=== PATIENT | female | born 1930 | race American Indian/Alaskan Native ===

== ENCOUNTER 2017-01-01 11:56 | Day surgery (SDC) | payer MEDICARE, MEDICAID ==
[2016-12-27 12:16] LABS: Hematocrit 28.4 % (30.3-42.9); Hemoglobin 8.9 gm/dl (10.1-14.3)
[2017-01-01 12:19] LABS: Hemoglobin 8.6 gm/dl (10.1-14.3)
[2017-01-01] MEDS ORDERED: NACL 0.9% 250ML 250 ML IV ONE (12:45)
[2017-01-01] MEDS ORDERED: APRESOLINE ONE (14:30)
[2017-01-01 14:47] VITALS: BP 202/121
[2017-01-01] MEDS ORDERED: APRESOLINE IV ONE (15:00)
== END 2017-01-01 14:45 ==
LOC: OPU 11:56
PROVIDERS: ATTEND Internal Medicine
DX: R79.0 Abnormal level of blood mineral (principal)
CPT/HCPCS: 36415; 36430; 85014; 85018; 86850; 86900; 86901; 86920; J0360; J7050; P9016

== ENCOUNTER 2017-01-05 18:25 | Inpatient (IN) | payer MEDICARE ==
[2017-01-05] MEDS ORDERED: NACL 0.9% 1000 ML 1,000 ML IV ONE (18:47)
--- NOTE | 2017-01-05 19:14 | Emergency Department Report ---
ED GI Bleed HPI - General Chief complaint: GI Bleed Stated complaint: GI BLEED Time Seen by Provider: 01/05/17 19:05 Source: EMS, RN notes reviewed, old records reviewed Mode of arrival: Stretcher Limitations: Other (patient demented, poor historian) - History of Present Illness Initial comments: This is an 86-year-old female. She is previously unknown to me. Primary care Dr.: Dr. Goyo Hayden, Dr. Arden Valdez. Past medical history includes hypertension, dementia, debility, constipation, diabetes. Patient is sent to the ER by her [facility] for evaluation of anemia and probable GI bleed. As per family and corroborating medical records, on 12/25/2016, patient had outpatient blood work which demonstrated a hemoglobin and hematocrit of 7/21 respectively. On 01/04/2017, recent head fecal occult blood testing, which was noted to be positive. As per verbal report from family, patient has had multiple hospital visits for blood transfusions. As per documentation of EMS, "GI bleed, estimated 30-40 mL of blood passed." There is no documentation of recent gastrointestinal evaluation. Patient is demented, and does not offer any specific complaints. In the emergency room, her physical examination is unremarkable, she had brown stool that was strongly guaiac positive. She is found to be hypokalemic with a probable urinary tract infection. She is hemodynamically stable. Case is discussed with gastroenterology, Dr. Danielito Mesa, whose group will see the patient is a consult. Case is discussed with Hospital physician, , who accepts the patient to his service. Medical decision-m[age]-year-old female with guaiac positive stool requiring multiple episodes of packed red blood cell transfusion in the past, to be admitted for further evaluation and management. Given her advanced age, medical comorbidities, patient at high risk for clinical deterioration, it is therefore not suitable for outpatient evaluation and management. -: Gradual Quality: painless Consistency: intermittent Improves with: none Worsens with: none Associated Symptoms: denies other symptoms - Related Data Home Medications Medication Instructions Recorded Confirmed Last Taken Acetaminophen [Acetaminophen TAB] 650 mg PO Q4HR PRN 04/28/16 01/05/17 Unknown Ascorbic Acid [Vitamin C] 500 mg PO BID 04/28/16 01/05/17 10/23/16 500mg Calcium Carbonate/Vitamin D3 1 each PO BID 04/28/16 01/05/17 10/23/16 [Calcium 600-Vit D3 400 Caplet] 1 Magnesium Hydroxide [Milk of 400 mg PO Q4H PRN 04/28/16 01/05/17 Unknown Magnesia] Multivitamin with Minerals/Lut 1 each PO DAILY 04/28/16 01/05/17 10/23/16 [Pub Multivitamin 50 Plus Tab] 1 Sorbitol Solution [Sorbitol] 30 ml PO 2XW 04/28/16 01/05/17 10/20/16 30ml Tramadol HCl [traMADol] 100 mg PO Q12H 04/28/16 01/05/17 10/23/16 50mg Insulin Detemir [Levemir VIAL] 5 unit SQ QHS 01/05/17 01/05/17 Unknown cloNIDine-TTS PATCH [Catapres-Tts 1 patch TD Q7D 01/05/17 01/05/17 Unknown Patch] Previous Rx's Medication Instructions Recorded Last Taken Type Ferrous Sulfate [Ferrous Sulfate 12.5 mg PO BID #60 syringe 01/08/17 Unknown Rx Oral Liq 12.5 Mg/0.83 Ml] Allergies Allergy/AdvReac Type Severity Reaction Status Date / Time codeine AdvReac Unknown Verified 04/28/16 07:56 ED Review of Systems ROS: Stated complaint: GI BLEED Other details as noted in HPI Comment: Unobtainable due to pts medical conditions ED Past Medical Hx - Past Medical History Previous Medical History?: Yes Hx Hypertension: Yes Hx CVA: Yes Hx Diabetes: Yes (type 2) Hx Renal Disease: Yes (CKD, stage 2) Hx Arthritis: Yes Hx Dementia: Yes Hx HIV: No Additional medical history: GI bleed, dysphagia, anemia, osteoporosis - Social History Smoking Status: Unknown if ever smoked Substance Use Type: None - Medications Home Medications: Home Medications Medication Instructions Recorded Confirmed Last Taken Type Acetaminophen [Acetaminophen TAB] 650 mg PO Q4HR PRN 04/28/16 01/05/17 Unknown History Ascorbic Acid [Vitamin C] 500 mg PO BID 04/28/16 01/05/17 10/23/16 History 500mg Calcium Carbonate/Vitamin D3 1 each PO BID 04/28/16 01/05/17 10/23/16 History [Calcium 600-Vit D3 400 Caplet] 1 Magnesium Hydroxide [Milk of 400 mg PO Q4H PRN 04/28/16 01/05/17 Unknown History Magnesia] Multivitamin with Minerals/Lut 1 each PO DAILY 04/28/16 01/05/17 10/23/16 History [Pub Multivitamin 50 Plus Tab] 1 Sorbitol Solution [Sorbitol] 30 ml PO 2XW 04/28/16 01/05/17 10/20/16 History 30ml Tramadol HCl [traMADol] 100 mg PO Q12H 04/28/16 01/05/17 10/23/16 History 50mg Insulin Detemir [Levemir VIAL] 5 unit SQ QHS 01/05/17 01/05/17 Unknown History cloNIDine-TTS PATCH [Catapres-Tts 1 patch TD Q7D 01/05/17 01/05/17 Unknown History Patch] Ferrous Sulfate [Ferrous Sulfate 12.5 mg PO BID #60 syringe 01/08/17 Unknown Rx Oral Liq 12.5 Mg/0.83 Ml] ED Physical Exam - General Limitations: Other (patient is pleasantly demented.) General appearance: in no apparent distress - Head Head exam: Present: atraumatic, normocephalic - Eye Eye exam: Present: normal appearance. Absent: nystagmus - ENT ENT exam: Present: mucous membranes dry - Neck Neck exam: Present: normal inspection, full ROM. Absent: tenderness - Respiratory Respiratory exam: Present: normal lung sounds bilaterally. Absent: respiratory distress, wheezes, rales, rhonchi, stridor, decreased breath sounds - Cardiovascular Cardiovascular Exam: Present: regular rate, normal rhythm, normal heart sounds. Absent: bradycardia, tachycardia, irregular rhythm, systolic murmur, diastolic murmur, rubs, gallop - GI/Abdominal GI/Abdominal exam: Present: soft, normal bowel sounds. Absent: distended, tenderness, guarding, rebound, rigid, pulsatile mass - Rectal Rectal exam: Present: normal inspection, normal rectal tone, heme (+) stool - Extremities Exam Extremities exam: Present: normal inspection, full ROM, normal capillary refill. Absent: tenderness, pedal edema, joint swelling, calf tenderness - Back Exam Back exam: Present: normal inspection, full ROM. Absent: tenderness, CVA tenderness (R), CVA tenderness (L), muscle spasm, paraspinal tenderness, vertebral tenderness - Neurological Exam Neurological exam: Present: alert, other (is no facial droop. Moves 4 extremities spontaneously. Sensation intact to light touch in 4 extremities.) - Psychiatric Psychiatric exam: Present: flat affect - Skin Skin exam: Present: warm, dry, intact, normal color. Absent: rash ED Course Vital Signs 01/05/17 01/05/17 01/05/17 18:35 18:39 18:40 Temperature 97.6 F Pulse Rate 73 78 77 Respiratory 17 16 Rate Blood Pressure 177/104 177/104 O2 Sat by Pulse 99 98 98 Oximetry 01/05/17 01/05/17 01/05/17 18:42 18:44 18:46 Temperature Pulse Rate 73 77 72 Respiratory 16 19 16 Rate Blood Pressure 177/104 177/104 177/104 O2 Sat by Pulse 99 98 99 Oximetry 01/05/17 01/05/17 01/05/17 18:48 18:50 18:52 Temperature Pulse Rate 74 77 72 Respiratory 19 19 16 Rate Blood Pressure 177/104 177/104 177/104 O2 Sat by Pulse 98 98 97 Oximetry 01/05/17 01/05/17 01/05/17 18:54 18:56 18:58 Temperature Pulse Rate 72 79 72 Respiratory 19 18 17 Rate Blood Pressure 177/104 177/104 177/104 O2 Sat by Pulse 97 97 97 Oximetry 01/05/17 01/05/17 01/05/17 19:00 19:02 19:04 Temperature Pulse Rate 80 101 H 81 Respiratory 21 15 12 Rate Blood Pressure 186/115 186/115 186/115 O2 Sat by Pulse 98 97 98 Oximetry 01/05/17 01/05/17 01/05/17 19:06 19:08 19:10 Temperature Pulse Rate 74 75 72 Respiratory 21 18 16 Rate Blood Pressure 186/115 186/115 186/115 O2 Sat by Pulse 99 99 100 Oximetry 01/05/17 01/05/17 01/05/17 20:00 20:04 20:08 Temperature 98.4 F Pulse Rate 68 69 Respiratory 17 18 Rate Blood Pressure 191/82 191/82 O2 Sat by Pulse 97 97 Oximetry 01/05/17 01/05/17 01/05/17 21:00 22:00 22:44 Temperature Pulse Rate 71 72 Respiratory 17 11 L 16 Rate Blood Pressure 146/91 181/90 O2 Sat by Pulse 100 98 98 Oximetry 01/05/17 01/06/17 01/06/17 23:00 00:00 01:00 Temperature Pulse Rate 73 78 73 Respiratory 19 15 17 Rate Blood Pressure 180/107 187/100 204/107 O2 Sat by Pulse 100 97 98 Oximetry 01/06/17 01/06/17 01/06/17 02:00 03:00 03:21 Temperature Pulse Rate 77 74 70 Respiratory 18 21 Rate Blood Pressure 184/107 202/89 202/115 O2 Sat by Pulse 100 97 Oximetry - Reevaluation(s) Reevaluation #1: 01/05/17 21:40 elevated blood pressure is appreciated. However given active GI bleed, medical comorbidities, I don't find it prudent to initiate antihypertensive therapy at this time. ED Medical Decision Making - Lab Data Result diagrams: 01/07/17 05:04 01/07/17 05:04 Vital Signs 01/05/17 01/05/17 01/05/17 18:35 18:39 18:40 Temperature 97.6 F Pulse Rate 73 78 77 Respiratory 17 16 Rate Blood Pressure 177/104 177/104 O2 Sat by Pulse 99 98 98 Oximetry 01/05/17 01/05/17 01/05/17 18:42 18:44 18:46 Temperature Pulse Rate 73 77 72 Respiratory 16 19 16 Rate Blood Pressure 177/104 177/104 177/104 O2 Sat by Pulse 99 98 99 Oximetry 01/05/17 01/05/17 01/05/17 18:48 18:50 18:52 Temperature Pulse Rate 74 77 72 Respiratory 19 19 16 Rate Blood Pressure 177/104 177/104 177/104 O2 Sat by Pulse 98 98 97 Oximetry 01/05/17 01/05/17 01/05/17 18:54 18:56 18:58 Temperature Pulse Rate 72 79 72 Respiratory 19 18 17 Rate Blood Pressure 177/104 177/104 177/104 O2 Sat by Pulse 97 97 97 Oximetry 01/05/17 01/05/17 01/05/17 19:00 19:02 19:04 Temperature Pulse Rate 80 101 H 81 Respiratory 21 15 12 Rate Blood Pressure 186/115 186/115 186/115 O2 Sat by Pulse 98 97 98 Oximetry 01/05/17 01/05/17 01/05/17 19:06 19:08 19:10 Temperature Pulse Rate 74 75 72 Respiratory 21 18 16 Rate Blood Pressure 186/115 186/115 186/115 O2 Sat by Pulse 99 99 100 Oximetry 01/05/17 01/05/17 20:00 20:08 Temperature 98.4 F Pulse Rate 68 Respiratory 17 Rate Blood Pressure 191/82 O2 Sat by Pulse 97 Oximetry Lab Results 01/05/17 01/05/17 01/05/17 Range/Units 19:26 19:26 19:26 WBC 4.4 L (4.5-11.0) K/mm3 RBC 3.77 (3.65-5.03) M/mm3 Hgb 9.6 L (10.1-14.3) gm/dl Hct 30.0 L (30.3-42.9) % MCV 80 (79-97) fl MCH 26 L (28-32) pg MCHC 32 (30-34) % RDW 22.5 H (13.2-15.2) % Plt Count 179 (140-440) K/mm3 Lymph % (Auto) 25.8 (13.4-35.0) % Davie % (Auto) 7.3 (0.0-7.3) % Eos % (Auto) 2.0 (0.0-4.3) % Baso % (Auto) 0.5 (0.0-1.8) % Lymph # 1.1 L (1.2-5.4) K/mm3 Davie # 0.3 (0.0-0.8) K/mm3 Eos # 0.1 (0.0-0.4) K/mm3 Baso # 0.0 (0.0-0.1) K/mm3 Seg Neutrophils % 64.4 (40.0-70.0) % Seg Neutrophils # 2.9 (1.8-7.7) K/mm3 PT 14.5 (12.2-14.9) Sec. INR 1.14 H (0.87-1.13) APTT 25.3 (24.2-36.6) Sec. Sodium 144 (137-145) mmol/L Potassium 2.8 L* (3.6-5.0) mmol/L Chloride 103.9 (98-107) mmol/L Carbon Dioxide 27 (22-30) mmol/L Anion Gap 16 mmol/L BUN 17 (7-17) mg/dL Creatinine 0.5 L (0.7-1.2) mg/dL Estimated GFR > 60 ml/min BUN/Creatinine Ratio 34.00 % Glucose 203 H (65-100) mg/dL Calcium 9.3 (8.4-10.2) mg/dL Magnesium (1.7-2.3) mg/dL Total Bilirubin 0.2 (0.1-1.2) mg/dL AST 11 (5-40) units/L ALT 5 L (7-56) units/L Alkaline Phosphatase 70 (35-129) units/L Total Protein 6.5 (6.3-8.2) g/dL Albumin 3.3 L (3.9-5) g/dL Albumin/Globulin Ratio 1.0 % Lipase 13 (13-60) units/L Urine Color (Yellow) Urine Turbidity (Clear) Urine pH (5.0-7.0) Ur Specific [place] (1.003-1.030) Urine Protein (Negative) mg/dL Urine Glucose (UA) (Negative) mg/dL Urine Ketones (Negative) mg/dL Urine Blood (Negative) Urine Nitrite (Negative) Urine Bilirubin (Negative) Urine Urobilinogen (<2.0) mg/dL Ur Leukocyte Esterase (Negative) Urine WBC (Auto) (0.0-6.0) /HPF Urine RBC (Auto) (0.0-6.0) /HPF U Epithel Cells (Auto) (0-13.0) /HPF Urine Bacteria (Auto) (Negative) /HPF Urine Mucus /HPF Blood Type Antibody Screen 01/05/17 01/05/17 01/05/17 Range/Units 19:30 20:07 20:48 WBC (4.5-11.0) K/mm3 RBC (3.65-5.03) M/mm3 Hgb (10.1-14.3) gm/dl Hct (30.3-42.9) % MCV (79-97) fl MCH (28-32) pg MCHC (30-34) % RDW (13.2-15.2) % Plt Count (140-440) K/mm3 Lymph % (Auto) (13.4-35.0) % Davie % (Auto) (0.0-7.3) % Eos % (Auto) (0.0-4.3) % Baso % (Auto) (0.0-1.8) % Lymph # (1.2-5.4) K/mm3 Davie # (0.0-0.8) K/mm3 Eos # (0.0-0.4) K/mm3 Baso # (0.0-0.1) K/mm3 Seg Neutrophils % (40.0-70.0) % Seg Neutrophils # (1.8-7.7) K/mm3 PT (12.2-14.9) Sec. INR (0.87-1.13) APTT (24.2-36.6) Sec. Sodium (137-145) mmol/L Potassium (3.6-5.0) mmol/L Chloride (98-107) mmol/L Carbon Dioxide (22-30) mmol/L Anion Gap mmol/L BUN (7-17) mg/dL Creatinine (0.7-1.2) mg/dL Estimated GFR ml/min BUN/Creatinine Ratio % Glucose (65-100) mg/dL Calcium (8.4-10.2) mg/dL Magnesium 2.0 (1.7-2.3) mg/dL Total Bilirubin (0.1-1.2) mg/dL AST (5-40) units/L ALT (7-56) units/L Alkaline Phosphatase (35-129) units/L Total Protein (6.3-8.2) g/dL Albumin (3.9-5) g/dL Albumin/Globulin Ratio % Lipase (13-60) units/L Urine Color Camila (Yellow) Urine Turbidity Slightly-cloudy (Clear) Urine pH 5.0 (5.0-7.0) Ur Specific [place] 1.026 (1.003-1.030) Urine Protein 30 mg/dl (Negative) mg/dL Urine Glucose (UA) Neg (Negative) mg/dL Urine Ketones Tr (Negative) mg/dL Urine Blood Neg (Negative) Urine Nitrite Pos (Negative) Urine Bilirubin Neg (Negative) Urine Urobilinogen 2.0 (<2.0) mg/dL Ur Leukocyte Esterase Tr (Negative) Urine WBC (Auto) 1.0 (0.0-6.0) /HPF Urine RBC (Auto) 33.0 (0.0-6.0) /HPF U Epithel Cells (Auto) 2.0 (0-13.0) /HPF Urine Bacteria (Auto) 3+ (Negative) /HPF Urine Mucus 2+ /HPF Blood Type A POSITIVE Antibody Screen Negative - EKG Data When compared to previous EKG there are: previous EKG unavailable 01/05/17 21:41 Normal sinus, 74 bpm, motion artifact, nonspecific T-wave abnormality, not morphologically consistent with STEMI. Critical care attestation.: If time is entered above; I have spent that time in minutes in the direct care of this critically ill patient, excluding procedure time. ED Disposition Clinical Impression: GI bleed, UTI (urinary tract infection), Hypokalemia Disposition: OP ADMITTED IP TO THIS HOSP Is pt being admited?: Yes Condition: Stable
[2017-01-05 19:45] LABS: Basophils % (Auto) 0.5 % (0.0-1.8); Hemoglobin 9.6 gm/dl (10.1-14.3); Mean Corpuscular HGB Conc 32 % (30-34); Mean Corpuscular Volume 80 fl (79-97); Platelet Count 179 K/mm3 (140-440); Red Blood Count 3.77 M/mm3 (3.65-5.03); White Blood Count 4.4 K/mm3 (4.5-11.0)
[2017-01-05 19:46] LABS: Mean Corpuscular Hemoglobin 26 pg (28-32); Red Cell Distribution Width 22.5 % (13.2-15.2)
[2017-01-05 19:57] LABS: INR 1.14 (0.87-1.13)
[2017-01-05 19:58] LABS: Partial Thromboplastin Time 25.3 Sec. (24.2-36.6)
[2017-01-05 20:09] LABS: Albumin 3.3 g/dL (3.9-5); Alkaline Phosphatase 70 units/L (35-129); Anion Gap 16 mmol/L; Bilirubin,Total 0.2 mg/dL (0.1-1.2); Blood Urea Nitrogen 17 mg/dL (7-17); Calcium 9.3 mg/dL (8.4-10.2); Carbon Dioxide 27 mmol/L (22-30); Chloride 103.9 mmol/L (98-107); Glucose 203 mg/dL (65-100); Lipase 13 units/L (13-60); Sodium 144 mmol/L (137-145); Total Protein 6.5 g/dL (6.3-8.2)
[2017-01-05 20:20] LABS: Alanine Aminotransferase 5 units/L (7-56); Potassium 2.8 mmol/L (3.6-5.0)
[2017-01-05 20:47] LABS: Bacteria,Urine 3+ /HPF (Negative); Bilirubin,Urine NEG (Negative); Blood,Urine NEG (Negative); Ketones,Urine TR mg/dL (Negative); Leukocyte Esterase,Urine TR (Negative); Mucus,Urine 2+ /HPF; Nitrite,Urine POS (Negative)
[2017-01-05] MEDS ORDERED: ROCEPHIN/NS 1 GM/50 ML 1 GM/50 ML BAG IV ONE (21:40)
[2017-01-05] MEDS: KCL 10MEQ/100ML 10 MEQ/100 ML BAG IV SCH (22:13)
[2017-01-06] MEDS: KCL 10MEQ/100ML 10 MEQ/100 ML BAG IV SCH ×3 (02:35→15:16)
[2017-01-06] MEDS ORDERED: APRESOLINE IV ONE (03:04)
[2017-01-06] MEDS ORDERED: APRESOLINE ONE (03:06)
--- NOTE | 2017-01-06 09:30 | Event Note ---
Date: 01/06/17 See H/p in reports GI hge HTN IDDM Dementia
[2017-01-06] MEDS ORDERED: CATAPRES-TTS PATCH TD SCH (10:00)
--- NOTE | 2017-01-06 11:59 | History and Physical Report ---
CHIEF COMPLAINT: Feeling weak. HISTORY OF PRESENT ILLNESS: An 86-year-old female brought in by family because of GI bleed about 30 to 40 mL of blood was noted. The patient has been having multiple blood transfusions because of the chronic GI bleed. No lightheadedness, no syncope. In the ER, the patient had a guaiac positive stool. PAST MEDICAL HISTORY: Significant for Insulin-dependent diabetes, hypertension, vitamin deficiency, chronic pain, dementia, cerebrovascular accident, and chronic kidney disease. CURRENT MEDICATIONS: On the chart. Off note is Levemir of 5 units at bedtime and clonidine-TTS patch. SOCIAL HISTORY: Does not smoke. No alcohol, no recreational drugs. FAMILY HISTORY: Significant for hypertension. REVIEW OF SYSTEMS: Significant for dementia and lower GI bleed and weakness. Otherwise, review of systems is essentially negative. PHYSICAL EXAMINATION: GENERAL: Elderly female, cooperative during examination. VITAL SIGNS: Blood pressure is 177/104, temperature is 97.6, O2 sats are 99%, and pulse is 73. HEENT: Unremarkable. Pale mucous membranes. NECK: Supple, no lymphadenopathy, no thyromegaly. LUNGS: Clear to auscultation and percussion. Good air entry. CARDIOVASCULAR: S1, S2 heard. No gallop, no murmur, no rub. Apical impulse in left fifth intercostal space and midclavicular line. ABDOMEN: Soft and benign. No hepatosplenomegaly. No guarding or rigidity. Hernial orifices are normal. EXTREMITIES: Good pedal pulses. No pedal edema. CENTRAL NERVOUS SYSTEM: Alert, but not oriented. LABORATORY DATA: Off-note note potassium is 2.8, H and H are 9.6 and 30.0. Glucose is 203. ASSESSMENT AND PLAN: 1. Gastrointestinal bleed. The patient is on IV Protonix. Gastroenterology consult requested. We will transfuse as necessary. Now presently H and H are 9.6 and 30.0, does not need transfusion. 2. Hypertension. Continue clonidine patch TTS. 3. Insulin-dependent diabetes. Continue insulin coverage. 4. Dementia, supportive care. The patient is not on Aricept. 5. Deep venous thrombosis prophylaxis, sequential compression devices. No Lovenox because of bleed. JOB# [id number] VSM/NTS
[2017-01-06] MEDS ORDERED: NACL 0.9% 250ML 250 ML IV ONE (14:05)
--- NOTE | 2017-01-06 16:17 | Gastroenterology Consultation ---
History of Present Illness - Reason for Consult Consult date: 01/06/17 anemia, occult GI bleeding Requesting physician: CONSTANCE CHARLES - History of Present Illness The patient is an 86-year-old and has been under the care of Dr. Goyo Hayden. She has apparently been detected to have anemia in the past and by history through the emergency room position may have passed a small amount of bright red blood per rectum recently. She had brown Hemoccult positive stools in the emergency department. The patient has advanced dementia and is unable to give any history. He lives in a [facility]. She currently denies any complaints. Past History Past Medical History: other (dementia with details of her past medical history are otherwise unknown.) Past Surgical History: Other (unknown) Social history: other (lives in a fci) Family history: other (unknown presently) Medications and Allergies Allergies Allergy/AdvReac Type Severity Reaction Status Date / Time codeine AdvReac Unknown Verified 04/28/16 07:56 Home Medications Medication Instructions Recorded Confirmed Last Taken Type Acetaminophen [Tylenol] 650 mg PO Q4HR PRN 04/28/16 01/05/17 Unknown History Ascorbic Acid [Vitamin C] 500 mg PO BID 04/28/16 01/05/17 10/23/16 History 500mg Calcium Carbonate/Vitamin D3 1 each PO BID 04/28/16 01/05/17 10/23/16 History [Calcium 600 + Vit D Caplet] 1 Magnesium Hydroxide [Milk of 400 mg PO Q4H PRN 04/28/16 01/05/17 Unknown History Magnesia] Multivitamin with Minerals/Lut 1 each PO DAILY 04/28/16 01/05/17 10/23/16 History [Pub Senior Vitamin Tablet] 1 Sorbitol Solution [Sorbitol] 30 ml PO 2XW 04/28/16 01/05/17 10/20/16 History 30ml Tramadol HCl [traMADol] 100 mg PO Q12H 04/28/16 01/05/17 10/23/16 History 50mg Insulin Detemir [Levemir VIAL] 5 unit SQ QHS 01/05/17 01/05/17 Unknown History cloNIDine-TTS PATCH [Catapres-Tts 1 patch TD Q7D 01/05/17 01/05/17 Unknown History Patch] Active Meds: Active Medications Clonidine HCl (Catapres-Tts Patch) 0.2 mg TD Sa ROBYN Last Admin: 01/06/17 13:46 Dose: 0.2 mg Insulin Aspart (Novolog) 0 units SUB-Q Q6HR ROBYN PRN Reason: Protocol Review of Systems - Review of Systems ROS unobtainable: due to mental status Exam - Constitutional Vital Signs: Temp Pulse Resp BP Pulse Ox 97.5 F L 84 16 180/72 98 01/06/17 08:00 01/06/17 08:00 01/06/17 08:00 01/06/17 13:46 01/06/17 08:00 General appearance: no acute distress, cachectic - EENT Eyes: PERRL ENT: hearing intact - Neck Neck: supple, normal ROM, no masses or JVD - Respiratory Respiratory effort: normal Respiratory: bilateral: CTA - Breasts Breasts: deferred - Cardiovascular Rhythm: regular Heart Sounds: Present: S1 & S2. Absent: gallop, rub - Gastrointestinal General gastrointestinal: Present: soft, non-tender, non-distended, normal bowel sounds. Absent: hepatomegaly, splenomegaly, mass Rectal Exam: deferred - Genitourinary Female Genitourinary: deferred - Integumentary Integumentary: Present: clear, warm, dry - Musculoskeletal Musculoskeletal: deferred - Neurologic Neurological: oriented to person, other (generalized confusion. Does not follow commands well.) - Labs CBC & Chem 7: 01/05/17 19:26 01/05/17 19:26 Lab Results: Laboratory Results - last 24 hr 01/06/17 11:24 POC Glucose 153 H Assessment and Plan - Patient Problems (1) Anemia Current Visit: Yes Status: Acute Qualifiers: Anemia type: A Iron deficiency anemia type: I Vitamin B12 deficiency anemia type: V Folate deficiency anemia type: F Bone marrow failure anemia type: B Hemolytic anemia type: H Other causes of anemia: O Plan to address problem: Anemia is chronic. The patient does not appear to have an active GI bleed. I' m not certain that she is suitable for any gastrointestinal workup because of her advanced dementia. Will discuss her care with the family. (2) Dementia Current Visit: Yes Status: Acute Qualifiers: Dementia type: D Alzheimer's disease onset: A Dementia behavioral disturbance: D Plan to address problem: Advanced dementia. (3) GI bleed Current Visit: Yes Status: Acute Qualifiers: GI bleed type/associated pathology: G Gastritis type: G Plan to address problem: No active bleeding is apparent. She had brown Hemoccult positive stools on ER presentation although there was a history of passing some bright red blood per rectum recently per the emergency room doctors records. Cross history from the family is pending. I doubt she would tolerate preparation for colonoscopy and would probably not be a candidate for surgery if a malignancy were present. (4) Hypokalemia Current Visit: Yes Status: Acute
--- NOTE | 2017-01-06 16:35 | Event Note ---
Date: 01/06/17 I reached the patient's daughter, Rosa M and discussed care at length. The patient was transfused last week 2 or 3 units of PRBCs. She is iron deficient and has not responded to oral iron completely. She does not wish for her mother to have invasive GI work up with colonoscopy or upper endoscopy. She understands that a cancer could be present among other possibilities, but feels she is not a surgical candidate. I would therefore suggest considering IV iron load and continue supportive care as an outpatient.
[2017-01-06] MEDS: NOVOLOG SUB-Q SCH ×3 (18:51→18:53)
[2017-01-06 23:51] LABS: Anion Gap 18 mmol/L; Blood Urea Nitrogen 11 mg/dL (7-17); Calcium 9.1 mg/dL (8.4-10.2); Carbon Dioxide 26 mmol/L (22-30); Chloride 106.8 mmol/L (98-107); Glucose 77 mg/dL (65-100); Potassium 3.3 mmol/L (3.6-5.0); Sodium 147 mmol/L (137-145)
--- NOTE | 2017-01-07 00:27 | Admit Criteria Form ---
Admission Criteria Documentation: GASTROINTESTINAL BLEEDING, LOWER Clinical Indications for Admission to Inpatient Care ( Place 'X' for any and all applicable criteria): Admission is indicated for ANY ONE of the following(1)(2)(3)(4)(5): [ X]I. Active gross bleeding per rectum [X ]II. Inpatient admission required rather than observation care (Also use Gastrointestinal Bleeding, Lower: Observation Care as appropriate) because of ANY ONE of the following: [ ]a) Hemodynamic instability that is severe or persistent [ ]b) Anemia requiring inpatient admission as indicated by ALL of the following: [ ]1) Presence of significant clinical finding indicated by ANY ONE of the following: [ ]A. Tachycardia for age [ ]B. Orthostatic vital sign changes [ ]C. Cognitive impairment [ ]D. Heart failure [ ]E. Chest pain [ ]F. Exertional dyspnea [ ]G. Other findings suggesting inadequate perfusion (eg, peripheral or myocardial ischemia, end organ dysfunction) [ ]2) Initial (eg, emergency department, observation care) treatment with transfusion or volume replacement is judged inappropriate (due to severity of the finding) or has been ineffective [ ]c) Severe pain requiring acute inpatient management [ ]d) Absent bowel sounds with complete ileus [ ]e) Signs of intestinal obstruction or peritonitis [A] [ ]f) High-risk low platelet count [X ]g) Severe electrolyte abnormalities requiring inpatient care [ ]h) Acute renal failure [ ]i) High fever or infection requiring inpatient admission as indicated by ANY ONE of the following(8)(9): [ ]1) Appropriate outpatient or observation care antimicrobial treatment unavailable, not effective, or not feasible Documented bacteremia [ ]2) Documented bacteremia [ ]3) Temperature greater than 104.9 degrees F ( 40.5 degrees C) (oral) [ ]4) Temperature greater than 103.1 degrees F ( 39.5 degrees C) (oral) or less than 96.8 degrees F (36 degrees C) (rectal) that does not respond to all emergency treatment measures [ ]j) IV fluid to replace significant ongoing losses ( greater than 3 L/m2 per day) [ ]k) Immediate inpatient surgery needed [ ]l) Parenteral nutrition regimen that must be implemented on inpatient basis [ ]m) Other condition, treatment or monitoring requiring inpatient admission [ ]III. Unstable comorbid illness (renal, hepatic, pulmonary, hematologic, neurologic, or cardiac) [ ]IV. Failure to control bleeding after colonoscopy [ ]V. Coagulopathy [ ]. Suspected or known ischemic colitis(6) [ ]VII. Previous aortic graft placement or known aortic aneurysm Extended stay beyond goal length of stay may be needed for(3)(4)(28): [ ]a) Emergency surgery [ ]b) Coagulation abnormalities(26) [ ]c) Recurrent or persistent bleeding, continued vital sign instability(27)( 28) [ ]d) Active comorbidities (eg, renal insufficiency, heart failure, pre- existing liver disease) The original [employer] content created by [employer] has been revised. The portions of the content which have been revised are identified through the use of italic text or in bold, and [facility] has neither reviewed nor approved the modified material. All other unmodified content is copyright [employer], [employer]. Please see references footnoted in the original [employer] edition 2016 Admission Criteria Met: Yes
[2017-01-07 05:48] LABS: Hematocrit 32.9 % (30.3-42.9); Hemoglobin 10.3 gm/dl (10.1-14.3); Mean Corpuscular HGB Conc 31 % (30-34); Mean Corpuscular Volume 80 fl (79-97); Platelet Count 141 K/mm3 (140-440); Red Blood Count 4.11 M/mm3 (3.65-5.03); White Blood Count 3.8 K/mm3 (4.5-11.0)
[2017-01-07 05:56] LABS: Mean Corpuscular Hemoglobin 25 pg (28-32); Red Cell Distribution Width 22.5 % (13.2-15.2)
[2017-01-07] MEDS: NOVOLOG SUB-Q SCH ×4 (06:00→17:42)
[2017-01-07 06:01] LABS: Anion Gap 21 mmol/L; BUN/Creatinine Ratio 33.33; Blood Urea Nitrogen 10 mg/dL (7-17); Calcium 9.2 mg/dL (8.4-10.2); Carbon Dioxide 25 mmol/L (22-30); Chloride 104.8 mmol/L (98-107); Glucose 93 mg/dL (65-100); Potassium 3.5 mmol/L (3.6-5.0); Sodium 147 mmol/L (137-145)
[2017-01-07 06:51] LABS: Anisocytosis 1+; Basophils % (Manual) 0 % (0.0-1.8); Blastocytes % (Manual) 0 %; Hypochromasia 1+
[2017-01-07 06:52] LABS: Diff Status Complete; Ovalocytes Few
[2017-01-07] MEDS: APRESOLINE IV PRN ×2 (08:47→23:56)
--- NOTE | 2017-01-07 13:32 | Progress Note ---
Assessment and Plan Assessment and plan: 1. GIB Chronic blood loss through GIB with history of multiple transfusions, most recent one 1 week ago Evaluated by GI who discussed with patient's daughter who does not want any aggressive testing (EGD, colonoscopy) Monitor H&H and transfuse as needed 2. HTN On Clonidine patch 3. DM Accu checks and SSI 4. Dementia Supportive care 5. Malnutrition Likely secondary to poor intake due to age/dementia 6. DVT prophylaxis SCDs History Interval history: denies lightheaded, dizziness; no specific complaints Hospitalist Physical - Constitutional Vitals: Temp Pulse Resp BP Pulse Ox 98.4 F 79 20 226/106 97 01/07/17 09:18 01/07/17 09:18 01/07/17 09:18 01/07/17 09:18 01/07/17 09:18 General appearance: Present: no acute distress, cachectic - EENT Eyes: Present: PERRL, EOM intact. Absent: scleral icterus, conjunctival injection - Neck Neck: Present: supple, normal ROM. Absent: masses or JVD - Respiratory Respiratory: bilateral: CTA, negative: rhonchi, wheezing - Cardiovascular Rhythm: regular Heart Sounds: Present: S1 & S2. Absent: systolic murmur - Extremities Extremities: no ischemia - Abdominal General gastrointestinal: soft, non-tender, non-distended, normal bowel sounds - Psychiatric Psychiatric: other (confused) - Neurologic Neurologic: moves all extremities Results - Labs CBC & Chem 7: 01/07/17 05:04 01/07/17 05:04 Labs: Laboratory Last Values WBC 3.8 K/mm3 (4.5-11.0) L 01/07/17 05:04 RBC 4.11 M/mm3 (3.65-5.03) 01/07/17 05:04 Hgb 10.3 gm/dl (10.1-14.3) 01/07/17 05:04 Hct 32.9 % (30.3-42.9) 01/07/17 05:04 MCV 80 fl (79-97) 01/07/17 05:04 MCH 25 pg (28-32) L 01/07/17 05:04 MCHC 31 % (30-34) 01/07/17 05:04 RDW 22.5 % (13.2-15.2) H 01/07/17 05:04 Plt Count 141 K/mm3 (140-440) 01/07/17 05:04 Lymph % (Auto) 25.8 % (13.4-35.0) 01/05/17 19:26 [place] % (Auto) 7.3 % (0.0-7.3) 01/05/17 19:26 Eos % (Auto) 2.0 % (0.0-4.3) 01/05/17 19:26 Baso % (Auto) 0.5 % (0.0-1.8) 01/05/17 19: Lymph # 1.1 K/mm3 (1.2-5.4) L 01/05/17 19: [place] # 0.3 K/mm3 (0.0-0.8) 01/05/17 19: Eos # 0.1 K/mm3 (0.0-0.4) 01/05/17 19: Baso # 0.0 K/mm3 (0.0-0.1) 01/05/17 19:26 Add Manual Diff Complete 01/07/17 05:04 Total Counted 100 01/07/17 05:04 Seg Neutrophils % 64.4 % (40.0-70.0) 01/05/17 19:26 Seg Neuts % (Manual) 60.0 % (40.0-70.0) 01/07/17 05:04 Band Neutrophils % 0 % 01/07/17 05:04 Lymphocytes % (Manual) 31.0 % (13.4-35.0) 01/07/17 05:04 Reactive Lymphs % (Man) 1.0 % 01/07/17 05:04 Monocytes % (Manual) 7.0 % (0.0-7.3) 01/07/17 05:04 Eosinophils % (Manual) 1.0 % (0.0-4.3) 01/07/17 05:04 Basophils % (Manual) 0 % (0.0-1.8) 01/07/17 05:04 Metamyelocytes % 0 % 01/07/17 05:04 Myelocytes % 0 % 01/07/17 05:04 Promyelocytes % 0 % 01/07/17 05:04 Blast Cells % 0 % 01/07/17 05:04 Nucleated RBC % Not Reportable 01/07/17 05:04 Seg Neutrophils # 2.9 K/mm3 (1.8-7.7) 01/05/17 19:26 Seg Neutrophils # Man 2.3 K/mm3 (1.8-7.7) 01/07/17 05:04 Band Neutrophils # 0.0 K/mm3 01/07/17 05:04 Lymphocytes # (Manual) 1.2 K/mm3 (1.2-5.4) 01/07/17 05:04 Abs React Lymphs (Man) 0.0 K/mm3 01/07/17 05:04 Monocytes # (Manual) 0.3 K/mm3 (0.0-0.8) 01/07/17 05:04 Eosinophils # (Manual) 0.0 K/mm3 (0.0-0.4) 01/07/17 05:04 Basophils # (Manual) 0.0 K/mm3 (0.0-0.1) 01/07/17 05:04 Metamyelocytes # 0.0 K/mm3 01/07/17 05:04 Myelocytes # 0.0 K/mm3 01/07/17 05:04 Promyelocytes # 0.0 K/mm3 01/07/17 05:04 Blast Cells # 0.0 K/mm3 01/07/17 05:04 WBC Morphology Not Reportable 01/07/17 05:04 Hypersegmented Neuts Not Reportable 01/07/17 05:04 Hyposegmented Neuts Not Reportable 01/07/17 05:04 Hypogranular Neuts Not Reportable 01/07/17 05:04 Smudge Cells Not Reportable 01/07/17 05:04 Toxic Granulation Not Reportable 01/07/17 05:04 Toxic Vacuolation Not Reportable 01/07/17 05:04 Dohle Bodies Not Reportable 01/07/17 05:04 Pelger-Huet Anomaly Not Reportable 01/07/17 05:04 Consuelo Rods Not Reportable 01/07/17 05:04 Platelet Estimate Appears normal 01/07/17 05:04 Clumped Platelets Not Reportable 01/07/17 05:04 Plt Clumps, EDTA Not Reportable 01/07/17 05:04 Large Platelets Not Reportable 01/07/17 05:04 Giant Platelets Not Reportable 01/07/17 05:04 Platelet Satelliting Not Reportable 01/07/17 05:04 Plt Morphology Comment Not Reportable 01/07/17 05:04 RBC Morphology Not Reportable 01/07/17 05:04 Dimorphic RBCs Not Reportable 01/07/17 05:04 Polychromasia Not Reportable 01/07/17 05:04 Hypochromasia 1+ 01/07/17 05:04 Poikilocytosis Not Reportable 01/07/17 05:04 Anisocytosis 1+ 01/07/17 05:04 Microcytosis Not Reportable 01/07/17 05:04 Macrocytosis Not Reportable 01/07/17 05:04 Spherocytes Not Reportable 01/07/17 05:04 Pappenheimer Bodies Not Reportable 01/07/17 05:04 Sickle Cells Not Reportable 01/07/17 05:04 Target Cells Not Reportable 01/07/17 05:04 Tear Drop Cells Not Reportable 01/07/17 05:04 Ovalocytes Few 01/07/17 05:04 Helmet Cells Not Reportable 01/07/17 05:04 [place] Bodies Not Reportable 01/07/17 05:04 [place] Rings Not Reportable 01/07/17 05:04 [place] Cells Not Reportable 01/07/17 05:04 Bite Cells Not Reportable 01/07/17 05:04 Crenated Cell Not Reportable 01/07/17 05:04 Elliptocytes Not Reportable 01/07/17 05:04 Acanthocytes (Spur) Not Reportable 01/07/17 05:04 Rouleaux Not Reportable 01/07/17 05:04 Hemoglobin C Crystals Not Reportable 01/07/17 05:04 Schistocytes Not Reportable 01/07/17 05:04 Malaria parasites Not Reportable 01/07/17 05:04 Dc Bodies Not Reportable 01/07/17 05:04 Hem Pathologist Commnt No 01/07/17 05:04 PT 14.5 Sec. (12.2-14.9) 01/05/17 19:26 INR 1.14 (0.87-1.13) H 01/05/17 19:26 APTT 25.3 Sec. (24.2-36.6) 01/05/17 19:26 Sodium 147 mmol/L (137-145) H 01/07/17 05:04 Potassium 3.5 mmol/L (3.6-5.0) L 01/07/17 05:04 Chloride 104.8 mmol/L (98-107) 01/07/17 05:04 Carbon Dioxide 25 mmol/L (22-30) 01/07/17 05:04 Anion Gap 21 mmol/L 01/07/17 05:04 BUN 10 mg/dL (7-17) 01/07/17 05:04 Creatinine 0.3 mg/dL (0.7-1.2) L 01/07/17 05:04 Estimated GFR > 60 ml/min 01/07/17 05:04 BUN/Creatinine Ratio 33.33 % 01/07/17 05:04 Glucose 93 mg/dL (65-100) 01/07/17 05:04 POC Glucose 206 (70-105) H 01/07/17 13:02 Calcium 9.2 mg/dL (8.4-10.2) 01/07/17 05:04 Magnesium 2.0 mg/dL (1.7-2.3) 01/05/17 20:48 Total Bilirubin 0.2 mg/dL (0.1-1.2) 01/05/17 19:26 AST 11 units/L (5-40) 01/05/17 19:26 ALT 5 units/L (7-56) L 01/05/17 19:26 Alkaline Phosphatase 70 units/L (35-129) 01/05/17 19:26 Total Protein 6.5 g/dL (6.3-8.2) 01/05/17 19:26 Albumin 3.3 g/dL (3.9-5) L 01/05/17 19:26 Albumin/Globulin Ratio 1.0 % 01/05/17 19:26 Lipase 13 units/L (13-60) 01/05/17 19:26 Urine Color Camila (Yellow) 01/05/17 20:07 Urine Turbidity Slightly-cloudy (Clear) 01/05/17 20:07 Urine pH 5.0 (5.0-7.0) 01/05/17 20:07 Ur Specific [place] 1.026 (1.003-1.030) 01/05/17 20:07 Urine Protein 30 mg/dl mg/dL (Negative) 01/05/17 20:07 Urine Glucose (UA) Neg mg/dL (Negative) 01/05/17 20:07 Urine Ketones Tr mg/dL (Negative) 01/05/17 20:07 Urine Blood Neg (Negative) 01/05/17 20:07 Urine Nitrite Pos (Negative) 01/05/17 20:07 Urine Bilirubin Neg (Negative) 01/05/17 20:07 Urine Urobilinogen 2.0 mg/dL (<2.0) 01/05/17 20:07 Ur Leukocyte Esterase Tr (Negative) 01/05/17 20:07 Urine WBC (Auto) 1.0 /HPF (0.0-6.0) 01/05/17 20:07 Urine RBC (Auto) 33.0 /HPF (0.0-6.0) 01/05/17 20:07 U Epithel Cells (Auto) 2.0 /HPF (0-13.0) 01/05/17 20:07 Urine Bacteria (Auto) 3+ /HPF (Negative) 01/05/17 20:07 Urine Mucus 2+ /HPF 01/05/17 20:07 Blood Type A POSITIVE 01/05/17 19:30 Antibody Screen Negative 01/05/17 19:30
--- NOTE | 2017-01-07 15:21 | Gastroenterology Progress Note ---
Assessment and Plan - Patient Problems (1) Anemia Current Visit: Yes Status: Acute Qualifiers: Anemia type: A Iron deficiency anemia type: I Vitamin B12 deficiency anemia type: V Folate deficiency anemia type: F Bone marrow failure anemia type: B Hemolytic anemia type: H Other causes of anemia: O Plan to address problem: Care was discussed at length with her daughter yesterday. Patient is stable GI martinez and not suitable for colonoscopy to investigate her rectal bleeding due to her advanced dementia. She has failed out patient oral iron therapy per her daughter. Would strongly consider an IV iron load before discharge. I will s/o at this point and f'/u at your request. Thank you for this consultation. (2) Dementia Current Visit: Yes Status: Acute Qualifiers: Dementia type: D Alzheimer's disease onset: A Dementia behavioral disturbance: D (3) GI bleed Current Visit: Yes Status: Acute Qualifiers: GI bleed type/associated pathology: G Gastritis type: G (4) Hypokalemia Current Visit: Yes Status: Acute Subjective Date of service: 01/07/17 Principal diagnosis: anemia and recent rectal bleeding Interval history: Patient is non verbal. Objective - Exam Narrative Exam: Looks comfortable. - Constitutional Vitals: Temp Pulse Resp BP Pulse Ox 98.4 F 79 20 226/106 97 01/07/17 09:18 01/07/17 09:18 01/07/17 09:18 01/07/17 09:18 01/07/17 09:18 General appearance: no acute distress - EENT ENT: hearing intact - Neck Neck: supple, normal ROM - Respiratory Respiratory effort: normal Respiratory: bilateral: CTA - Cardiovascular Rhythm: regular - Gastrointestinal General gastrointestinal: Present: soft, non-tender, non-distended, normal bowel sounds - Neurologic Neurological: disoriented, other (non verbal) - Labs CBC & Chem 7: 01/07/17 05:04 01/07/17 05:04 Labs: Laboratory Results - last 24 hr 01/06/17 01/06/17 01/06/17 17:34 21:47 23:10 WBC RBC Hgb Hct MCV MCH MCHC RDW Plt Count Add Manual Diff Total Counted Seg Neuts % (Manual) Band Neutrophils % Lymphocytes % (Manual) Reactive Lymphs % (Man) Monocytes % (Manual) Eosinophils % (Manual) Basophils % (Manual) Metamyelocytes % Myelocytes % Promyelocytes % Blast Cells % Nucleated RBC % Seg Neutrophils # Man Band Neutrophils # Lymphocytes # (Manual) Abs React Lymphs (Man) Monocytes # (Manual) Eosinophils # (Manual) Basophils # (Manual) Metamyelocytes # Myelocytes # Promyelocytes # Blast Cells # WBC Morphology Hypersegmented Neuts Hyposegmented Neuts Hypogranular Neuts Smudge Cells Toxic Granulation Toxic Vacuolation Dohle Bodies Pelger-Huet Anomaly Consuelo Rods Platelet Estimate Clumped Platelets Plt Clumps, EDTA Large Platelets Giant Platelets Platelet Satelliting Plt Morphology Comment RBC Morphology Dimorphic RBCs Polychromasia Hypochromasia Poikilocytosis Anisocytosis Microcytosis Macrocytosis Spherocytes Pappenheimer Bodies Sickle Cells Target Cells Tear Drop Cells Ovalocytes Helmet Cells [place] Bodies [place] Rings [place] Cells Bite Cells Crenated Cell Elliptocytes Acanthocytes (Spur) Rouleaux Hemoglobin C Crystals Schistocytes Malaria parasites Dc Bodies Hem Pathologist Commnt Sodium 147 H Potassium 3.3 L Chloride 106.8 Carbon Dioxide 26 Anion Gap 18 BUN 11 Creatinine 0.4 L Estimated GFR > 60 BUN/Creatinine Ratio 27.50 Glucose 77 POC Glucose 171 H 89 Calcium 9.1 01/07/17 01/07/17 01/07/17 05:04 05:04 06:00 WBC 3.8 L RBC 4.11 Hgb 10.3 Hct 32.9 MCV 80 MCH 25 L MCHC 31 RDW 22.5 H Plt Count 141 Add Manual Diff Complete Total Counted 100 Seg Neuts % (Manual) 60.0 Band Neutrophils % 0 Lymphocytes % (Manual) 31.0 Reactive Lymphs % (Man) 1.0 Monocytes % (Manual) 7.0 Eosinophils % (Manual) 1.0 Basophils % (Manual) 0 Metamyelocytes % 0 Myelocytes % 0 Promyelocytes % 0 Blast Cells % 0 Nucleated RBC % Not Reportable Seg Neutrophils # Man 2.3 Band Neutrophils # 0.0 Lymphocytes # (Manual) 1.2 Abs React Lymphs (Man) 0.0 Monocytes # (Manual) 0.3 Eosinophils # (Manual) 0.0 Basophils # (Manual) 0.0 Metamyelocytes # 0.0 Myelocytes # 0.0 Promyelocytes # 0.0 Blast Cells # 0.0 WBC Morphology Not Reportable Hypersegmented Neuts Not Reportable Hyposegmented Neuts Not Reportable Hypogranular Neuts Not Reportable Smudge Cells Not Reportable Toxic Granulation Not Reportable Toxic Vacuolation Not Reportable Dohle Bodies Not Reportable Pelger-Huet Anomaly Not Reportable Consuelo Rods Not Reportable Platelet Estimate Appears normal Clumped Platelets Not Reportable Plt Clumps, EDTA Not Reportable Large Platelets Not Reportable Giant Platelets Not Reportable Platelet Satelliting Not Reportable Plt Morphology Comment Not Reportable RBC Morphology Not Reportable Dimorphic RBCs Not Reportable Polychromasia Not Reportable Hypochromasia 1+ Poikilocytosis Not Reportable Anisocytosis 1+ Microcytosis Not Reportable Macrocytosis Not Reportable Spherocytes Not Reportable Pappenheimer Bodies Not Reportable Sickle Cells Not Reportable Target Cells Not Reportable Tear Drop Cells Not Reportable Ovalocytes Few Helmet Cells Not Reportable [place] Bodies Not Reportable [place] Rings Not Reportable [place] Cells Not Reportable Bite Cells Not Reportable Crenated Cell Not Reportable Elliptocytes Not Reportable Acanthocytes (Spur) Not Reportable Rouleaux Not Reportable Hemoglobin C Crystals Not Reportable Schistocytes Not Reportable Malaria parasites Not Reportable Dc Bodies Not Reportable Hem Pathologist Commnt No Sodium 147 H Potassium 3.5 L Chloride 104.8 Carbon Dioxide 25 Anion Gap 21 BUN 10 Creatinine 0.3 L Estimated GFR > 60 BUN/Creatinine Ratio 33.33 Glucose 93 POC Glucose 121 H Calcium 9.2 01/07/17 13:02 WBC RBC Hgb Hct MCV MCH MCHC RDW Plt Count Add Manual Diff Total Counted Seg Neuts % (Manual) Band Neutrophils % Lymphocytes % (Manual) Reactive Lymphs % (Man) Monocytes % (Manual) Eosinophils % (Manual) Basophils % (Manual) Metamyelocytes % Myelocytes % Promyelocytes % Blast Cells % Nucleated RBC % Seg Neutrophils # Man Band Neutrophils # Lymphocytes # (Manual) Abs React Lymphs (Man) Monocytes # (Manual) Eosinophils # (Manual) Basophils # (Manual) Metamyelocytes # Myelocytes # Promyelocytes # Blast Cells # WBC Morphology Hypersegmented Neuts Hyposegmented Neuts Hypogranular Neuts Smudge Cells Toxic Granulation Toxic Vacuolation Dohle Bodies Pelger-Huet Anomaly Consuelo Rods Platelet Estimate Clumped Platelets Plt Clumps, EDTA Large Platelets Giant Platelets Platelet Satelliting Plt Morphology Comment RBC Morphology Dimorphic RBCs Polychromasia Hypochromasia Poikilocytosis Anisocytosis Microcytosis Macrocytosis Spherocytes Pappenheimer Bodies Sickle Cells Target Cells Tear Drop Cells Ovalocytes Helmet Cells [place] Bodies [place] Rings [place] Cells Bite Cells Crenated Cell Elliptocytes Acanthocytes (Spur) Rouleaux Hemoglobin C Crystals Schistocytes Malaria parasites Dc Bodies Hem Pathologist Commnt Sodium Potassium Chloride Carbon Dioxide Anion Gap BUN Creatinine Estimated GFR BUN/Creatinine Ratio Glucose POC Glucose 206 H Calcium
[2017-01-08 07:52] VITALS: BP 96/54
[2017-01-08] MEDS: NOVOLOG SUB-Q SCH ×4 (08:16→17:59)
--- NOTE | 2017-01-08 11:55 | Discharge Summary ---
Providers - Providers Date of Admission: 01/06/17 01:23 Date of discharge: 01/08/17 Attending physician: CHOCO LANG 01/06/17 07:54 Consult to Wound/ET Nurse [CONS] Routine Reason For Exam: wound eval GI Primary care physician: [employer] Hospitalization Reason for admission: bright red blood per retum Condition: Stable Hospital course: Patient is a 87 year old female with chronic GIB and multiple transfusions, who presented to the hospital for red blood per rectum, but without symptoms. Her HGb was in 9 range. GI was consulted, but given her age and dementia patient's daughter declined any aggressive testing (EGD, colonoscopy) even though malignancy could be a possibility. She received iron infusion and is discharge in stable condition with Hgb 10. F/U with PCP. Discharge diagnosis: 1. GIB 2. HTN 3. DM 4. Dementia 5. Malnutrition Disposition: DC/TX SNF W [facility] CERT Time spent for discharge: 35 min Core Measure Documentation - Palliative Care Palliative Care/ Comfort Measures: Not Applicable - Core Measures Any of the following diagnoses?: none Exam - Physical Exam Narrative exam: Patient seen and examined: - Constitutional Vitals: Temp Pulse Resp BP Pulse Ox 97.4 F L 97 H 20 96/54 99 01/08/17 07:00 01/08/17 07:00 01/08/17 07:00 01/08/17 07:00 01/08/17 07:00 General appearance: Present: no acute distress, cachectic - EENT Eyes: Present: PERRL, EOM intact. Absent: scleral icterus, conjunctival injection - Neck Neck: Present: supple, normal ROM. Absent: masses or JVD - Respiratory Respiratory: bilateral: CTA, negative: rales, rhonchi, wheezing - Cardiovascular Rhythm: regular Heart Sounds: Present: S1 & S2. Absent: systolic murmur - Extremities Extremities: no ischemia - Abdominal General gastrointestinal: Present: soft, non-tender, non-distended, normal bowel sounds - Neurologic Neurologic: moves all extremities Plan Activity: fall precautions Diet: low cholesterol, low salt Follow up with: PRIMARY CARE, [Primary Care Provider] - 3-5 Days Forms: Accompanied Note Prescriptions: Ferrous Sulfate [Ferrous Sulfate Oral Liq 12.5 Mg/0.83 Ml] 12.5 mg PO BID #60 syringe Pending Studies iron infusion
[2017-01-08] MEDS ORDERED: NACL 0.9% IV ONE (12:00)
[2017-01-08] MEDS ORDERED: VENOFER IV ONE (12:00)
--- NOTE | 2017-01-11 07:57 | Query- General ---
Dear Date:_01/11/17 [employer] Utility Worker/CDS:Jeremy Espitia Phone#:_[phone] Exercise your independent professional judgment when responding to this query. Questions asked do not imply a particular answer is desired or expected. We greatly appreciate your clarification on this issue. Clinical Documentation States: This is an 86-year-old female. As per verbal report from family, patient has had multiple hospital visits for blood transfusions. As per documentation of EMS, "GI bleed, estimated 30-40 mL of blood passed." There is no documentation of recent gastrointestinal evaluation. Patient is demented, and does not offer any specific complaints. In the emergency room, her physical examination is unremarkable, she had brown stool that was strongly guaiac positive. She is found to be hypokalemic with a probable urinary tract infection. She is hemodynamically stable. Clinical Findings Show (include reference to source document): BP: 204/107 and 202/115, Given IV Hydralazine Given the above clinical scenario can you please provide an appropriate diagnosis based on your knowledge of the patient: PHYSICIAN RESPONSE: [ X] Hypertensive emergency (formerly malignant hypertension) [ X] Hypertensive Crisis [ ] Hypertensive Urgency ( formerly accelerated hypertension) [ ] Other [ ] Unable to determine Present on Admission: [X ] Yes (Y) [ ] Clinically undeterminable (W) [ ]No(N) Please also document response in your Progress Notes and/or Discharge Summary and indicate if the condition was present on admission. ARD
== END 2017-01-08 20:30 | DRG 378 ==
LOC: ED 18:25 → 3A 01-06 01:23
PROVIDERS: ADMIT Internal Medicine; ATTEND Internal Medicine
PROC: 30233N1 Transfusion of Nonautologous Red Blood Cells into Peripheral Vein, Percutaneous Approach (ICD-10-PCS; principal; 2017-01-06)
DX: K92.2 Gastrointestinal hemorrhage, unspecified (principal); I16.1 Hypertensive emergency; F03.90 Unspecified dementia, unspecified severity, without behavioral disturbance, psychotic disturbance, mood disturbance, and anxiety; K59.00 Constipation, unspecified; E87.6 Hypokalemia; Z86.73 Personal history of transient ischemic attack (TIA), and cerebral infarction without residual deficits; I12.9 Hypertensive chronic kidney disease with stage 1 through stage 4 chronic kidney disease, or unspecified chronic kidney disease; E11.22 Type 2 diabetes mellitus with diabetic chronic kidney disease; N18.2 Chronic kidney disease, stage 2 (mild); D64.9 Anemia, unspecified; M19.90 Unspecified osteoarthritis, unspecified site; M81.0 Age-related osteoporosis without current pathological fracture; G89.29 Other chronic pain; Z88.6 Allergy status to analgesic agent; Z82.49 Family history of ischemic heart disease and other diseases of the circulatory system; Z79.4 Long term (current) use of insulin
CPT/HCPCS: 36415; 80048; 80053; 81001; 82271; 82962; 83690; 83735; 85007; 85025; 85610; 85730; 86850; 86900; 86901; 87086; 93005; 93010; 96365; 96366; 96367; J0360; J0696; J1756; J1815; J3480; J7050